=== PATIENT | female | born 1970 | race Caucasian/White ===

== ENCOUNTER 2018-11-28 17:15 | Emergency (ER) | payer OTHER, SELFPAY ==
[2018-11-28 17:20] VITALS: PULSE 82; RESP 16; TEMP 37.1; O2SAT 98
--- NOTE | 2018-11-28 17:35 | DI.RAD_ITS ---
SYMPTOM/DIAGNOSIS: FELL, PAIN LEFT FOREARM AND LEFT WRIST: Multiple views. No acute fracture or dislocation is identified. IMPRESSION: No acute abnormality.
--- NOTE | 2018-11-28 17:38 | W.ED.GENAD ---
Discharge Plan Disposition Patient Disposition: HOME Condition: Stable Discharge Details Chief Complaint: Orthopedic Clinical Impression: Injury of left forearm and wrist Primary Care Provider: Kindra Mccullough ED Provider: Jaswant Gaines Home Meds and New Rx's Prescriptions: Continued thyroid (pork) [[place] Thyroid] 60 mg Tablet 60 g PO DAILY RF: 0 Discharge Instructions Instructions: Wrist Sprain (ED) Additional Instructions: Please wear the provided wrist splint at all times except for showering until cleared by orthopedist. You should take 1000 mg of Tylenol up along with 600 mg of ibuprofen every 6 hours as needed for pain. Continue to apply ice to reduce swelling and it is very important that you follow-up with orthopedics within the next week for concern of possible scaphoid fracture. Referrals: Kindra Mccullough [Primary Care Provider] - (Call your primary care provider for referral to orthopedist if needed. You should see custom framing specialist within the next week for reassessment) Discharge Data Discharge Date/Time-TO BE ENTERED AT DEPARTURE: 11/28/18 19:11 Medical Decision Making Patient presenting to the emergency department for chief complaint of left forearm pain. Patient states approximately 2 hours prior to arrival she slipped and fell on the ice and attempted to catch herself with her forearm outstretched. After then she has had significant forearm pain. Physical exam shows slight deformity to the distal radius with severe discomfort of palpation of the forearm and any movement of the wrist. I feel the injury is highly suspicious of distal radius fracture so imaging was ordered. Patient is neurovascularly intact distal to injury. Patient given [place] prior to results Review of imaging shows no acute fracture and radiologist interpretation agrees. There was concern of a possible defect seen in the scaphoid but this is extremely subtle and the cortex appears completely intact. So I this is considered doubt acute fracture at this time. patient was encouraged to use [id number] pain therapies along with ice. Patient placed in a thumb spica and imaging disc was given to patient as she typically resides in [facility]. Given possible concern of scaphoid fracture patient was strongly encouraged to follow-up with local orthopedist within the next week upon returning home. Return precautions were given. After discussion of diagnosis and plan of care patient has no further needs, questions, or concerns and states clear understanding to return to the emergency department for any worsening symptoms. HPI General Mode of arrival: ambulatory. Date/Time Provider Initiated Documentation: 11/28/18 17:26. Limitations to Documentation: no limitations. Information obtained by: patient. History of Present Illness 48 year old F presents to the emergency department with the chief complaint of left forearm pain after fall, described as moderate, and is localized to the left and upper extremity. Patient started experiencing this hour(s) (2) and it has been constant. No relieving factors improve symptom(s), Movement worsens symptoms . Patient notes no other symptoms.. Patient did receive the following treatments prior to arrival, none Related Data Home Medications Medication Instructions Recorded Confirmed thyroid (pork) [[place] Thyroid] 60 g PO DAILY 11/28/18 11/28/18 Allergies Allergy/AdvReac Type Severity Reaction Status Date / Time shell fish Allergy Uncoded 11/28/18 17:23 General Stated Complaint: Orthopedic YEMI: 4 Review of Systems ENT Denies neck pain Cardiovascular Denies syncope Musculoskeletal Reports as per HPI, Denies back pain, Denies neck pain, Denies numbness and Denies tingling Integumentary/Breasts Denies rash, Denies sores and Denies wounds Neurologic Denies syncope, Denies numbness and Denies tingling PFSH Social History Smoking and Tabacco status: Never Exam Const General: cooperative and no acute distress Orientation: alert, awake and oriented x3 Resp Effort & Inspection: normal respiratory effort and able to speak in complete sentences Cardio Rate: regular rate Rhythm: regular rhythm Extrem Left upper extremity: elbow/forearm Details: tenderness Location: of the proximal forearm, wrist Details: tenderness Location: of the distal radius, of the distal ulna and of the anatomic snuffbox; not of the dorsal wrist and not of the volar wrist, swelling Location: of the dorsal wrist, abnormal ROM Details: pain with active ROM, deformity (Distal radius), normal vascular exam and radial pulse present; no abrasions, no lacerations and no ecchymosis and hand Details: neuromotor exam normal and neurosensory exam normal Course Vital Signs Temperature 37.1 C 11/28/18 17:20 Pulse 82 11/28/18 17:20 Respiratory Rate 16 11/28/18 17:20 Pulse Oximetry 98 11/28/18 17:20 Temperature 37.1 C 11/28/18 17:20 Temperature Source Skin 11/28/18 17:20 Pulse 82 11/28/18 17:20 Respiratory Rate 16 11/28/18 17:20 Respiratory Effort Non-Labored 11/28/18 17:20 Blood Pressure Position Sitting 11/28/18 17:20 Pulse Oximetry 98 11/28/18 17:20 Oxygen Delivery Method Room Air 11/28/18 17:20 Oxygen Flow Rate 0 11/28/18 17:20 Pain Level 9 11/28/18 17:20
[2018-11-28] MEDS: HYDROcodone 5/Acetaminophen 325 TAB PO (17:40)
--- NOTE | 2018-11-28 17:43 | ED.GENADUL_ITS ---
Discharge Plan Disposition Patient Disposition: HOME Condition: Stable Discharge Details Chief Complaint: Orthopedic Clinical Impression: Injury of left forearm and wrist Primary Care Provider: Kindra Mccullough ED Provider: Jaswant Gaines Home Meds and New Rx's Prescriptions: Continued thyroid (pork) [[place] Thyroid] 60 mg Tablet 60 g PO DAILY RF: 0 Discharge Instructions Instructions: Wrist Sprain (ED) Additional Instructions: Please wear the provided wrist splint at all times except for showering until cleared by orthopedist. You should take 1000 mg of Tylenol up along with 600 mg of ibuprofen every 6 hours as needed for pain. Continue to apply ice to reduce swelling and it is very important that you follow-up with orthopedics within the next week for concern of possible scaphoid fracture. Referrals: Kindra Mccullough [Primary Care Provider] - (Call your primary care provider for referral to orthopedist if needed. You should see electronic data interchange specialist within the next week for reassessment) Discharge Data Discharge Date/Time-TO BE ENTERED AT DEPARTURE: 11/28/18 19:11 Medical Decision Making Patient presenting to the emergency department for chief complaint of left forearm pain. Patient states approximately 2 hours prior to arrival she slipped and fell on the ice and attempted to catch herself with her forearm outstretched. After then she has had significant forearm pain. Physical exam shows slight deformity to the distal radius with severe discomfort of palpation of the forearm and any movement of the wrist. I feel the injury is highly suspicious of distal radius fracture so imaging was ordered. Patient is neurovascularly intact distal to injury. Patient given [place] prior to results Review of imaging shows no acute fracture and radiologist interpretation agrees. There was concern of a possible defect seen in the scaphoid but this is extremely subtle and the cortex appears completely intact. So I this is considered doubt acute fracture at this time. patient was encouraged to use [id number] pain therapies along with ice. Patient placed in a thumb spica and imaging disc was given to patient as she typically resides in [facility]. Given possible concern of scaphoid fracture patient was strongly encouraged to follow-up with local orthopedist within the next week upon returning home. Return precautions were given. After discussion of diagnosis and plan of care patient has no further needs, questions, or concerns and states clear under standing to return to the emergency department for any worsening symptoms. HPI General Mode of arrival: ambulatory . Date/Time Provider Initiated Documentation: 11/28/18 17:26 . Limitations to Documentation: no limitations . Information obtained by: patient . History of Present Illness 48 year old F presents to the emergency department with the chief complaint of left forearm pain after fall, described as moderate, and is localized to the left and upper extremity. Patient started experiencing this hour(s) (2) and it has been constant. No relieving factors improve symptom(s), Movement worsens symptoms . Patient notes no other symptoms.. Patient did receive the following treatments prior to arrival, none Related Data Home Medications Medication Instructions Recorded Confirmed thyroid (pork) [[place] Thyroid] 60 g PO DAILY 11/28/18 11/28/18 Allergies Allergy/AdvReac Type Severity Reaction Status Date / Time shell fish Allergy Uncoded 11/28/18 17:23 General Stated Complaint: Orthopedic YEMI: 4 Review of Systems ENT Denies neck pain Cardiovascular Denies syncope Musculoskeletal Reports as per HPI, Denies back pain, Denies neck pain, Denies numbness and Denies tingling Integumentary/Breasts Denies rash, Denies sores and Denies wounds Neurologic Denies syncope, Denies numbness and Denies tingling [facility] Social History Smoking and Tabacco status: Never Exam Const General: cooperative and no acute distress Orientation: alert, awake and oriented x3 Resp Effort & Inspection: normal respiratory effort and able to speak in complete sentences Cardio Rate: regular rate Rhythm: regular rhythm Extrem Left upper extremity: elbow/forearm Details: tenderness Location: of the proximal forearm, wrist Details: tenderness Location: of the distal radius, of the distal ulna and of the anatomic snuffbox; not of the dorsal wrist and not of the volar wrist, swelling Location: of the dorsal wrist, abnormal ROM Details: pain with active ROM, deformity (Distal radius), normal vascular exam and radial pulse present; no abrasions, no lacerations and no ecchymosis and hand Details: neuromotor exam normal and neurosensory exam normal Course Vital Signs Temperature 37.1 C 11/28/18 17:20 Pulse 82 11/28/18 17:20 Respiratory Rate 16 11/28/18 17:20 Pulse Oximetry 98 11/28/18 17:20 Temperature 37.1 C 11/28/18 17:20 Temperature Source Skin 11/28/18 17:20 Pulse 82 11/28/18 17:20 Respiratory Rate 16 11/28/18 17:20 Respiratory Effort Non-Labored 11/28/18 17:20 Blood Pressure Position Sitting 11/28/18 17:20 Pulse Oximetry 98 11/28/18 17:20 Oxygen Delivery Method Room Air 11/28/18 17:20 Oxygen Flow Rate 0 11/28/18 17:20 Pain Level 9 11/28/18 17:20
--- NOTE | 2018-11-28 18:35 | DI.VRAD_ITS ---
EXAM: XR Left Forearm, 2 Views EXAM DATE/TIME: 11/28/2018 5:36 PM CLINICAL HISTORY: 48 years old, female; Injury or trauma; Fall; Initial encounter; Blunt trauma (contusions or hematomas; Wrist; Left TECHNIQUE: XR Left forearm 2 views. COMPARISON: No relevant prior studies available. FINDINGS: Bones/joints: Normal. Bony alignment is anatomic without evidence for fracture or dislocation. Soft tissues: Normal. IMPRESSION: No evidence for acute posttraumatic abnormality. COMMENT: Preliminary interpretation is based on receipt of 3 image(s). A final report will be issued subsequently. Dictated and Authenticated by: Maricruz Bedoya MD. Ordering:YONIS Michaud MD
--- NOTE | 2018-11-28 18:35 | DI.VRAD_ITS ---
EXAM: XR Left Wrist Complete, 3 or more Views EXAM DATE/TIME: 11/28/2018 5:36 PM CLINICAL HISTORY: 48 years old, female; Pain; Wrist; Left; Patient HX: [place] TECHNIQUE: XR Left wrist 3 or more views. COMPARISON: No relevant prior studies available. FINDINGS: Bones/joints: Bony alignment is anatomic without evidence for fracture or dislocation. Soft tissues: Normal. IMPRESSION: No evidence for acute posttraumatic abnormality. COMMENT: Preliminary interpretation is based on receipt of 4 image(s). A final report will be issued subsequently. Dictated and Authenticated by: Maricruz Bedoya MD. Ordering:YONIS Michaud MD
== END 2018-11-28 19:11 | disposition home or self-care (01) ==
PROVIDERS: Emergency Provider Nurse Practitioner Family; PCP Nurse Practitioner Family
DX: M79.631 Pain in right forearm (principal); M25.532 Pain in left wrist; W00.0XXA Fall on same level due to ice and snow, initial encounter
CPT/HCPCS: 99284; 73090; 73110; 99282; L3807